=== PATIENT | male | born 1975 | race Two or more races ===

== ENCOUNTER 2021-02-03 11:49 | Emergency (ER) | payer OTHER ==
[~2021-02-03] VITALS: Ht 193 cm; Wt 158.8 kg
[2021-02-03] MEDS ORDERED: NORVASC10 MG PO (12:01)
[2021-02-03] MEDS ORDERED: DIOVAN320 MG PO (12:02)
[2021-02-03] MEDS ORDERED: CARDURA XL4 MG PO (12:02)
[2021-02-03] MEDS ORDERED: PERCOCET 5-3251 EACH PO (15:08)
[2021-02-03] MEDS ORDERED: SKELAXIN800 MG PO (15:08)
[2021-02-03] MEDS ORDERED: MEDROLPACK PO (15:08)
[2021-02-03] MEDS ORDERED: DICLOFENAC POTA50 MG PO (15:08)
== END 2021-02-03 15:20 ==
LOC: ER 11:49
DX: M54.41 Lumbago with sciatica, right side (principal); M51.26 Other intervertebral disc displacement, lumbar region

== ENCOUNTER 2021-08-18 14:00 | Inpatient (IN) | payer OTHER ==
[~2021-08-18] VITALS: Ht 193 cm; Wt 140.6 kg
[~2021-08-18 14:00] MED LIST: CARDURA XL4 MG PO; DICLOFENAC POTA50 MG PO; DIOVAN320 MG PO; MEDROLPACK PO; NORVASC10 MG PO; PERCOCET 5-3251 EACH PO; SKELAXIN800 MG PO
[2021-08-18] MEDS ORDERED: NEURONTIN600 M1 PO (14:24)
--- NOTE | 2021-08-18 14:32 | NUR ---
SE RECIBE PT MASCULINO DE 45 ANOS [address] QUIEN REFIEREA ESTAR HYPERTENSO SE STEVEN LA PRECION SANGUINEA Y PT OBTIENE 215/116MMHG. SE STEVEN EKG Y SE LE PRESENTA A DR FENG QUIEN INDICA UBICAR EL PT EN OBSERVACION. SE MONITOREAN S/V Y SE UBICA EN LA CHAD 6.
--- NOTE | 2021-08-18 14:36 | NUR ---
PACIENTE EVALUADO POR DR MARTINEZ QUIEN [place] MEDICO. MRS SALEH ORIENTA A PTE SOBRE TX Y EL MISMO REFIERE ENTENDER. MRS SALEH REALIZA MUESTRAS DE LABORATORIO DIANA ORDEN MEDICA Y ADMINISTRACION DE MEDICAMENTOS. SE LE COLOCA SALINE LOCK. SE MANTIENE EN ESPERA DE ESTUDIOS Y RESULTADOS.
--- NOTE | 2021-08-18 15:42 | NUR ---
SE RECIBE PTE ALERTA Y ORIENTADO X 3 ESFERAS EN CAMA CON BARANDAS ELEVADAS POR SEGURIDAD. PRESENTANDO BUEN PATRON RESPIRATORIO. H/L EN BRAZO YAIR AREA KALIN DE EDEMA Y ERITEMA. PENDIENTE RESULTADO DE LABORATORIO. SE MANTIENE EN OBSERVACION.
--- NOTE | 2021-08-18 19:29 | NUR ---
SE RECIBE PTE ALERTA Y ORIENTADO DEL AREA DE OBSERVACION. CANALIZADO EN MANO LT PATENTE. SE CONECTA PTE A MONITOR CARDIACO Y OXIMETRIA DE PULSO CONTINUA. SE CANLAIZA PTE EN PERIFERAL RT HAND CON ANGIO #18 PATENTE. AREA DE VENOPUNCION KALIN DE EDEMA Y ERITEMA.
--- NOTE | 2021-08-18 23:08 | NUR ---
PTE ALERTA Y ORIENTADO POR RAKAN ESFERAS CON BUEN PATRON RESPIRATORIO. TIENE CANALIZACION X2 EN BRAZO RT Y LT. SE COLOCA DRIP DE TRIDIL 50MG/250ML @3ML/HR DIANA ORDEN MEDICA UTILIZANDO MEDIDAS ASEPTICAS. PENDIENTE CONSULTA CON Y DR.RIVERA PEGUERO.
--- NOTE | 2021-08-19 08:13 | NUR ---
SE RECIBE PTE ALERTA Y ORIENTADO POR 3 EN EL AREA DE CENTERO DE DOLOR DE PECHO PTE NO PRESENTA DOLOR AL MOMETNO PTE CONECTADO EN MONITOR CARDIACO Y OXYMETRIA DE PULSO SE OBSERVA VENOPUNCION PATENTE KALIN DE EDEMA PTE EN ESPERA DEL DR DANNY PEGUERO Y DR RIOS. PTE SE MANTIENE EN OBSERVACION Y BAJO TRATAMIENTO.
--- NOTE | 2021-08-19 10:30 | NUR ---
LA KERLINE DRAPER SE COMUNICA [place] CON EL DR DANNY PEGUERO PARA NOTIFICARLE QUE EL PTE TIENE ZACH CONSULTA EN CENTRO DE DOLOR DE PECHO PTE SE MANTIENE EN OBSERVACION Y BAJO TRATAMIENTO
--- NOTE | 2021-08-19 15:29 | NUR ---
SE RECIBE PACIENTE ALERTA Y ORIENTADO EN CAMA # 16 AREA DE CHEST PAIN. SE OFRECE ENOCH PARA EVALUAR CONDICION, ORIENTAR DE CONTINUIDAD DE TRATAMIENTO Y BRINDAR CUIDADOS CORRESPONDIENTES.REFIERE ENTENDER.SE MIDEN Y DOCUMENTAN S/V. PACIENTE CONECTADO A MONITOR CARDIACO CON SATUROMETRO, IVF'S PATENTES EN MANO IZQ ANGIO #20 BAJANDO TRIDIL A 2 MLS/HR, AREA KALIN DE EDEMA Y/O ERITEMA. PACIENTE ACOMPANADO DE FAMILIAR CON BARANDAS ELEVADAS. PACIENTE EVALUADO POR DR DANNY PEGUERO. BARANDAS ELEVADAS POR THOMSON SEGURIDAD, SE MONITOREA POR CAMBIOS SIGNIFICATIVOS.
[2021-08-21] MEDS ORDERED: ETODOLAC400 MG (08:42)
[2021-08-21] MEDS ORDERED: DICLOFENAC SODI75 MG (08:42)
[2021-08-21] MEDS ORDERED: VALSARTAN-HCTZ1 EAC3 (08:42)
[2021-08-21] MEDS ORDERED: ST. JOSEPH ASPI81 M2 PO (17:08)
[2021-08-21] MEDS ORDERED: HYDROCHLOROTHIA25 MG PO (17:08)
[2021-08-21] MEDS ORDERED: CARdura 4MG TABLET PO (17:08)
[2021-08-21] MEDS ORDERED: AVAPRO300 MG PO (17:08)
[2021-08-21] MEDS ORDERED: NIFEDIPINE ER60 MG PO (17:08)
== END 2021-08-21 22:01 | disposition home or self-care (01) | DRG 305 ==
LOC: ER 14:00 → MEDI 08-19 15:45 → SEC-K 08-19 15:45 → MEDJ 08-19 19:17 → SEC-K 08-19 20:15 → MEDI 08-19 20:22
PROVIDERS: ADMIT Internal Medicine; ATTEND Internal Medicine
PROC: BW28ZZZ Computerized Tomography (CT Scan) of Head (ICD-10-PCS; 2021-08-19)
PROC: B24BZZZ Ultrasonography of Heart with Aorta (ICD-10-PCS; principal; 2021-08-20)
PROC: 4A12X4Z Monitoring of Cardiac Electrical Activity, External Approach (ICD-10-PCS; 2021-08-20)
DX: I16.0 Hypertensive urgency (principal); E66.8 Other obesity; G47.33 Obstructive sleep apnea (adult) (pediatric); E78.49 Other hyperlipidemia; Z20.822 Contact with and (suspected) exposure to COVID-19

== ENCOUNTER 2022-09-29 09:37 | Emergency (ER) | payer OTHER ==
[~2022-09-29] VITALS: Ht 193 cm; Wt 147.0 kg
[~2022-09-29 09:37] MED LIST changes: +AVAPRO300 MG PO; +CARdura 4MG TABLET PO; +DICLOFENAC SODI75 MG; +ETODOLAC400 MG; +HYDROCHLOROTHIA25 MG PO; +NEURONTIN600 M1 PO; +NIFEDIPINE ER60 MG PO; +ST. JOSEPH ASPI81 M2 PO; +VALSARTAN-HCTZ1 EAC3
[2022-09-29] MEDS ORDERED: NIFEDIPINE20 MG (09:55)
== END 2022-09-29 14:22 | disposition home or self-care (01) ==
LOC: ER 09:37
DX: J11.1 Influenza due to unidentified influenza virus with other respiratory manifestations (principal); R73.9 Hyperglycemia, unspecified

== ENCOUNTER 2025-05-07 07:48 | Outpatient (CLI) | payer OTHER ==
[~2025-05-07 07:48] MED LIST changes: +NIFEDIPINE20 MG
== END 2025-05-07 07:59 | disposition home or self-care (01) ==
LOC: MRI 07:48
DX: E22.0 Acromegaly and pituitary gigantism (principal)
CPT/HCPCS: 70553

== ENCOUNTER → 2025-07-09 | Emergency (ER) | payer OTHER ==
[~2025-07-09] VITALS: Ht 193 cm; Wt 117.9 kg
[~2025-07-09] MED LIST changes: +ALDACTONE25 MG PO; +CARVEDILOL ER40 MG PO; +COZAAR100 MG PO; +GABAPENTIN 300 MG CAPSULE PO ONE; +KETOROLAC TROMETHAMINE 30 MG VIAL IM ONE; +KETOROLAC TROMETHAMINE 30 MG VIAL ONE; +NIFEDIPINE20 MG PO; +ORPHENADRINE CITRATE 30 MG/ML AMPUL IM ONE; +ORPHENADRINE CITRATE 30 MG/ML AMPUL ONE; +PEPCID20 MG PO
== END | disposition home or self-care (01) ==
LOC: ER 17:33
DX: M54.31 Sciatica, right side (principal); M51.369 Other intervertebral disc degeneration, lumbar region without mention of lumbar back pain or lower extremity pain; E11.9 Type 2 diabetes mellitus without complications; Z79.84 Long term (current) use of oral hypoglycemic drugs; I10 Essential (primary) hypertension